=== PATIENT | male | born 1965 | race Caucasian/White ===

== ENCOUNTER 2018-03-17 09:17 | Emergency (ER) | payer OTHER ==
[2018-03-17] MEDS ORDERED: Ibuprofen 800 MG TAB ONE (09:41)
--- NOTE | 2018-03-17 10:36 | RAD ---
RIGHT HAND THREE VIEWS: 03/17/2018 HISTORY: Swelling of the hand and fingers. Son of truck slammed on right hand while at work. FINDINGS: No acute fracture or dislocation is seen. 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 A similar finding is seen involving the distal aspect of the metacarpal mid dle finger but much smaller in size. No other osseous abnormality is seen. There is prominent subcu taneous soft tissue swelling seen dorsal to the level of the metacarpal phalangeal joint on the later al projection. IMPRESSION 1. Subcutaneous soft tissue swelling without evidence of an acute osseous abnormality. 2. 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 POS: [facility]
== END 2018-03-17 09:49 | disposition home or self-care (01) ==
LOC: ERS 09:17
DX: S60.221A Contusion of right hand, initial encounter (principal); I10 Essential (primary) hypertension; V69.9XXA Occupant (driver) (passenger) of heavy transport vehicle injured in unspecified traffic accident, initial encounter